=== PATIENT | female | born 1945 | race Hispanic/Latino ===

== ENCOUNTER 2017-08-04 07:33 | Day surgery (SDC) | payer MEDICARE, OTHER ==
[2017-07-12 07:45] VITALS: BMI 39.0
[~2017-08-04 07:33] MED LIST: Ciprofloxacin 0.3% OPTH SOLN OS SCH; Flurbiprofen 0.03% Opht SOLN OS SCH; Lactated Ringer's 500 ML IV ONE; Phenylephrine 2.5% Opht Soln OS SCH; Tropicamide 1% Opht SOLUTION OS SCH; acetaZOLAMIDE 500 mg SR Cap PO ONE
[2017-08-04] MEDS ORDERED: Carbachol 0.01% IO ONE (07:45)
[2017-08-04] MEDS ORDERED: Povidone Iodine Ophthalmic 5% Soln ONE (07:45)
[2017-08-04] MEDS ORDERED: Tetracaine 0.5% Ophth (OR ONLY) ONE (07:46)
[2017-08-04] MEDS ORDERED: Tobramycin/Dexamethasone OPHT OINT ONE (07:46)
[2017-08-04] MEDS ORDERED: Lidocaine Hydrochloride 5 ML INJ ONE (07:46)
[2017-08-04] MEDS ORDERED: Hyaluronidase Human, Recombi 150 U/ML VIAL ONE (07:46)
[2017-08-04] MEDS ORDERED: Chondroitin/Hyaluronate Opth Syringe KIT (0.55 ml-0.5 ml) IO ONE (07:46)
[2017-08-04] MEDS ORDERED: Lactated Ringer's 500 ML IV ONE (08:15)
[2017-08-04] MEDS ORDERED: Midazolam 2 MG/2 ML VIAL ONE (10:34)
[2017-08-04] MEDS ORDERED: acetaZOLAMIDE 500 mg SR Cap PO ONE (11:00)
[2017-08-04 12:09] VITALS: BP 130/70; PULSE 71; RESP 16; TEMP 97.8; O2SAT 100
--- NOTE | 2017-08-04 21:15 | OP ---
PROCEDURE DATE: 08/04/2017 PREOPERATIVE DIAGNOSIS: Matured cataract, left eye. POSTOPERATIVE DIAGNOSIS: Matured cataract, left eye. OPERATIVE PROCEDURE: Phacoemulsification, left eye, insertion of posterior chamber lens implant. SURGEON: Jesus Ruffin MD COSURGEON: Fito Whelan MD ANESTHESIA TYPE: Local intravenous sedation. PROCEDURE: The patient was brought into the operating room, placed in supine position, prepped and draped in the usual fashion for ophthalmic surgery. Lid speculum was inserted, lids and exposing globe. A side-port incision was made superiorly and inferiorly with a disposable sharp blade. Anterior chamber was filled with Viscoat. A near clear corneal incision was made temporally with a 2.75-mm keratome. Capsulorrhexis was then performed with Utrata forceps. Hydrodissection carried out with balanced salt solution. Nucleus was phacoemulsified. Remaining cortical fragments were removed with a split irrigation and aspiration system. The capsular sac was filled with Provisc. A posterior chamber lens was then injected into the capsular sac and rotated into horizontal position. Provisc was aspirated out of the anterior chamber. The pupil was constricted with Miochol. The wound was found to be watertight. Topical Betadine, Timoptic, and TobraDex ointment and pressure patch were applied. The patient tolerated the procedure well. Jesus Ruffin MD
== END 2017-08-04 11:40 | disposition home or self-care (01) ==
LOC: C.SDS 07:33
PROVIDERS: ATTEND Ophthalmology
DX: H26.9 Unspecified cataract (principal)
CPT/HCPCS: 66984; 82948; J2250; J3010; J3470; J7120; V2632

== ENCOUNTER 2017-10-06 08:00 | Day surgery (SDC) | payer MEDICARE, OTHER ==
[2017-07-12 07:45] VITALS: BMI 39.0
[~2017-10-06 08:00] MED LIST changes: +Carbachol 0.01% IO ONE; -Ciprofloxacin 0.3% OPTH SOLN OS SCH; -Flurbiprofen 0.03% Opht SOLN OS SCH; -Lactated Ringer's 500 ML IV ONE; +Lidocaine 2% MPF (5 ml) Inj ONE; -Phenylephrine 2.5% Opht Soln OS SCH; +Povidone Iodine Ophthalmic 5% Soln ONE; +Tetracaine 0.5% Ophth (OR ONLY) ONE; +Tobramycin/Dexamethasone OPHT OINT ONE; -Tropicamide 1% Opht SOLUTION OS SCH; -acetaZOLAMIDE 500 mg SR Cap PO ONE
[2017-10-06] MEDS ORDERED: Tropicamide 1% Opht SOLUTION OD SCH (08:30)
[2017-10-06] MEDS ORDERED: Phenylephrine 2.5% Opht Soln OD SCH (08:30)
[2017-10-06] MEDS ORDERED: Ciprofloxacin 0.3% OPTH SOLN OD SCH (08:30)
[2017-10-06] MEDS ORDERED: Flurbiprofen 0.03% Opht SOLN OD SCH (08:30)
[2017-10-06 09:42] LABS: CALCIUM 9.8 mg/dl (8.6-10.4)
[2017-10-06] MEDS ORDERED: Midazolam 2 MG/2 ML VIAL ONE (10:12)
[2017-10-06] MEDS: Hyaluronidase Human, Recombi 150 U/ML VIAL ONE ×2 (10:25→10:52)
[2017-10-06] MEDS: Chondroitin/Hyaluronate Opth Syringe KIT (0.55 ml-0.5 ml) IO ONE ×2 (10:33→10:51)
[2017-10-06 11:23] VITALS: TEMP 97.7
[2017-10-06 12:00] VITALS: BP 134/64; PULSE 65; RESP 18; O2SAT 98
[2017-10-06] MEDS ORDERED: acetaZOLAMIDE 500 mg SR Cap PO SCH ×2 (12:00→18:00)
--- NOTE | 2017-10-06 16:05 | OP ---
PROCEDURE DATE: 10/06/2017 PREOPERATIVE DIAGNOSIS: Matured cataract, right eye. POSTOPERATIVE DIAGNOSIS: Matured cataract, right eye. OPERATIVE PROCEDURE: Phacoemulsification, right eye, insertion of posterior chamber lens implant. SURGEON: Jesus Ruffin MD CO-SURGEON: Fito Whelan MD. ANESTHESIA TYPE: Local intravenous sedation. PROCEDURE: The patient was brought into the operating room, placed in supine position, prepped and draped in the usual fashion for ophthalmic surgery. Lid speculum was inserted, lids and exposing globe. A side-port incision was made superiorly and inferiorly with a disposable sharp blade. Anterior chamber was filled with Viscoat. A near clear corneal incision was made temporally with a 2.75-mm keratome. Capsulorrhexis was then performed with Utrata forceps. Hydrodissection carried out with balanced salt solution. Nucleus was phacoemulsified. Remaining cortical fragments were removed with a split irrigation and aspiration system. The capsular sac was filled with Provisc. A posterior chamber lens was then injected into the capsular sac and rotated into horizontal position. Provisc was aspirated out of the anterior chamber. The pupil was constricted with Miochol. The wound was found to be watertight. Topical Betadine, Timoptic, and TobraDex ointment and pressure patch were applied. The patient tolerated the procedure well. Jesus Ruffin MD
== END 2017-10-06 12:40 | disposition home or self-care (01) ==
LOC: C.SDS 08:00
PROVIDERS: ATTEND Ophthalmology
DX: H25.11 Age-related nuclear cataract, right eye (principal)
CPT/HCPCS: 36415; 66984; 80048; 82948; J2250; J3010; J3470; V2632